=== PATIENT | female | born 1985 ===

== ENCOUNTER 2017-08-04 20:57 | Emergency (ER) | payer OTHER ==
--- NOTE | 2017-08-04 22:27 | OBHP ---
Datetime: 08/04/2017 22:21 IP Adm Impression: , intrauterine ; No Active Labor IP Admit Plan: Observation/Evaluation; Discharge home Admit Comment, IP Provider: The patient is a 31-year-old 2 para 0 estimated due date 017 estimated gestational age 35 weeks patient reports decreased movement today times several h ours duration. Patient called her PMD [facility] [place] and was advised to come to the hospital for feta l evaluation. Upon arrival patient now reports movement she denies any vaginal bleeding any con tractions or any leakage of fluid. Past medical history Lupus hypothyroid Past surgical history none Medications plaqenil and Synthroid Past obstetrical history spontaneous miscarriage Review of systems patient denies headache chest pain shortness of breath palpitations vaginal blee ding leakage of fluid dysuria Vital signs stable afebrile Physical exam C [facility] Intrauterine at 35 weeks decrease movement NST reactive Discharge home movement counts, labor precautions, follow up with PMD this week Pelvic Type - PN: Not Done Extremities - PN: Not Done Abdomen - PN: Normal Back - PN: Normal Breast - PN: Not Done Lungs - PN: Normal Heart - PN: Normal Thyroid - PN: Normal Neurologic - PN: Normal HEENT - PN: Normal General - PN: Normal Weight - Estimated: 6 Presentation-Admit: Vertex FHR - Baseline A Provider: [id number] Gestation - Est Wks by US: 35.0 EGA AdmitDate IP: 35.1 Vital Signs Provider: Reviewed IP Chief Complaint: evaluation NICHD Variability Prov Fetus A: Moderate 6-25bpm FHR Category Provider Fetus A: Category I NICHD Decel Fetus A IP Provider: None Genitourinary Exam: Not Done DTRs - PN: Not Done
[2017-08-05 02:31] VITALS: BP 106/63; PULSE 90
== END 2017-08-04 22:30 | disposition home or self-care (01) ==
LOC: H.EROB2 20:57 → H.EROB 21:43 → H.EROB2 22:30
DX: O36.8130 Decreased fetal movements, third trimester, not applicable or unspecified (principal); Z3A.35 35 weeks gestation of pregnancy